=== PATIENT | male | born 1980 | race Caucasian/White ===

== ENCOUNTER 2017-01-28 20:17 | Emergency (ER) | payer MEDICARE, OTHER ==
[2017-01-28 20:23] VITALS: RESP 18
[2017-01-28] MEDS ORDERED: AZITHROMYCIN 500 MG TAB PO STA (20:51)
[2017-01-28] MEDS ORDERED: cefTRIAXone 250 MG VIAL IM STA (20:53)
[2017-01-28 21:52] LABS: Appearance,Urine Clear (Clear); Bilirubin,Urine Negative (Negative); Glucose,Urine (UA) Negative (Negative); Ketones,Urine Negative (Negative); Leukocyte Esterase,Urine Negative (Negative); Nitrite,Urine Negative (Negative); Protein,Urine Negative (Negative); Specific Gravity,Urine 1.015 (1.001-1.035); UA Billing (MACRO vs. MICRO) CHEM; Urobilinogen,Urine <2.0 mg/dL (<2.0)
--- NOTE | 2017-01-28 22:09 | ED ---
General Adult HPI - General Chief complaint: Urogenital Stated complaint: STD TEST Time Seen by Provider: 01/28/17 20:49 Source: patient Mode of arrival: ambulatory Limitations: no limitations - History of Present Illness Initial comments: Patient is a 36-year-old male past history of gonorrhea presenting with STD check. Patient states his girlfriend in the last several months told him to get checked as she was diagnosed with an STD. Patient denies penile ulcer, discharge or pain. - Related Data Home Medications Medication Instructions Recorded Confirmed Diazepam [Valium] 10 mg PO BID PRN 02/08/15 01/28/17 Ezetimibe [Zetia] 10 mg PO DAILY 02/08/15 01/28/17 Fenofibrate 160 mg PO DAILY 02/08/15 01/28/17 Simvastatin [Zocor] 40 mg PO HS 02/08/15 01/28/17 lamoTRIgine [LaMICtal] 200 mg PO DAILY 02/08/15 01/28/17 traZODone HCL [Desyrel] 150 mg PO BID 02/08/15 01/28/17 valACYclovir HCL [Valtrex] 500 mg PO DAILY 02/08/15 01/28/17 Allergies Allergy/AdvReac Type Severity Reaction Status Date / Time No Known Allergies Allergy Verified 01/28/17 20:23 Review of Systems ROS Statement: Those systems with pertinent positive or pertinent negative responses have been documented in the HPI. Constitutional: No fever and no chills. HENT: No congestion, no rhinorrhea and no sore throat. Eyes: No discharge and no redness. Respiratory: No cough and no shortness of breath. Cardiovascular: No chest pain and no palpitations. Gastrointestinal: No nausea, no vomiting, no abdominal pain and no diarrhea. Genitourinary: No dysuria and no hematuria. No discharge. Musculoskeletal: No back pain and no arthralgias. Skin: No pallor and no rash. Neurological: No dizziness and No headaches. ROS Other: All systems not noted in ROS Statement are negative. Past Medical History Past Medical History: Hyperlipidemia, Hypertension Additional Past Medical History / Comment(s): bipolar History of Any Multi-Drug Resistant Organisms: None Reported Past Surgical History: No Surgical Hx Reported Past Psychological History: Bipolar Smoking Status: Never smoker Past Alcohol Use History: None Reported Past Drug Use History: None Reported General Exam - General Exam Comments Initial Comments: Constitutional: Patient appears well-developed and well-nourished. No distress. Head: Normocephalic and atraumatic. Eyes: Conjunctivae and EOM are normal. Right eye exhibits no discharge. Left eye exhibits no discharge. No scleral icterus. Neck: Normal range of motion. Neck supple. Cardiovascular: Normal rate and regular rhythm. No murmur heard. Pulmonary/Chest: Effort normal and breath sounds normal. No respiratory distress. No wheezes. Abdominal: Soft. No distension. There is no tenderness. There is no rebound and no guarding. Genitourinary: Exam completed with RN. Normal circumcised penis without rash or ulcers. No testicle or tenderness. No discharge. Musculoskeletal: Normal range of motion. No edema or tenderness. Neurological: Patient alert and oriented to person, place, and time. Skin: Skin is warm and dry. Not diaphoretic. Nursing notes and vitals reviewed. Limitations: no limitations Course Vital Signs 01/28/17 20:20 Temperature 98.3 F Pulse Rate 64 Respiratory 18 Rate Blood Pressure 145/84 O2 Sat by Pulse 98 Oximetry - Reevaluation(s) Reevaluation #1: 01/28/17 22:14 Patient updated on UA. Patient treated with Rocephin and azithromycin. Will follow-up on gonorrhea/cardiac cultures. Medical Decision Making - Medical Decision Making Patient's a 36-year-old male presenting for STD check after being told by a sexual partner to get checked. Patient accepted STD prophylaxis. Cultures obtained and sent. UA unremarkable. Prior to discharge, patient was resting comfortably in bed. Course of stay improved. Denies pain. Discussed physical exam and diagnostic tests with patient. Questions answered and patient is agreeable to discharge with close follow up with Primary Care Physician. Instructed to return to Emergency Department if symptoms worsen. - Lab Data Lab Results 01/28/17 Range/Units 21:15 Urine Color Yellow Urine Appearance Clear (Clear) Urine pH 6.0 (5.0-8.0) Ur Specific [place] 1.015 (1.001-1.035) Urine Protein Negative (Negative) Urine Glucose (UA) Negative (Negative) Urine Ketones Negative (Negative) Urine Blood Negative (Negative) Urine Nitrate Negative (Negative) Urine Bilirubin Negative (Negative) Urine Urobilinogen <2.0 (<2.0) mg/dL Ur Leukocyte Esterase Negative (Negative) Disposition Clinical Impression: STD exposure Disposition: HOME SELF-CARE Condition: Good Instructions: Safe Sex (ED), Condom Use (ED), Sexually Transmitted Diseases (ED ) Referrals: Broderick Zapata MD [Primary Care Provider] - 1-2 days
[2017-01-28 22:30] VITALS: BP 132/72; PULSE 60; TEMP 98.2
== END 2017-01-28 22:15 | disposition home or self-care (01) ==
LOC: EC 20:17
DX: Z20.2 Contact with and (suspected) exposure to infections with a predominantly sexual mode of transmission (principal); E78.5 Hyperlipidemia, unspecified; F31.9 Bipolar disorder, unspecified; Z79.899 Other long term (current) drug therapy
CPT/HCPCS: 99283; 96372; 81003; 87491; 87591; 87086; J0696

== ENCOUNTER → 2019-03-25 | Outpatient (CLI) | payer MEDICARE, OTHER ==
--- NOTE | 2019-03-25 14:18 | MR ---
EXAMINATION TYPE: MR lumbar spine wo con DATE OF EXAM: 03/25/2019 COMPARISON: NONE HISTORY: Pain TECHNIQUE: T1 and T2 axial and sagittal images of the lumbar spine are submitted. FINDINGS: There is no abnormal signal seen within the visualized spinal cord or paraspinal soft tissu es. At L1-2 there is no degenerative disc disease, disc herniation, or canal stenosis. No foraminal encro achment. At L2-3 there is degenerative disc disease and hypertrophic change with broad-based central disc prot rusion. Facet arthropathy noted. No Canal stenosis. Mild effacement of thecal sac and mild bilateral foraminal encroachment slightly greater on the left. At L3-4 there is degenerative disc disease with diffuse broad-based disc bulging and mild effacement of thecal sac. Mild bilateral foraminal encroachment. At L4-5 there is broad-based central disc bulging slightly greater paracentrally to the left. Neural foramina are patent. No Canal stenosis. Hypertrophic change of the facets. At L5-S1 there is small focal central disc herniation abutting the anterior margin of the thecal sac. There may be slight contact of the exiting right nerve root. Mild effacement of thecal sac. Neural f oramina patent.. No foraminal encroachment. IMPRESSION: 1. Small focal central disc herniation abutting the anterior margin of the thecal sac L5-S1 may conta ct the exiting right nerve root. 2. Multilevel degenerative disc disease with multilevel disc bulging or protrusions as discussed abov e resulting in multilevel mild foraminal encroachment.
== END | disposition home or self-care (01) ==
LOC: RADMRIMAIN 11:15
PROVIDERS: ATTEND Family Medicine
DX: M51.27 Other intervertebral disc displacement, lumbosacral region (principal); M51.36 Other intervertebral disc degeneration, lumbar region
CPT/HCPCS: 72148

== ENCOUNTER → 2022-05-03 | Outpatient (CLI) | payer MEDICARE, OTHER ==
--- NOTE | 2022-05-03 15:08 | P.SLEEP ---
History of Present Illness H&P Date: 05/03/22 This is a 41-year-old male patient was referred to me for evaluation of insomnia. This patient is 41 years old and the patient has had chronic insomnia. He is known to have history of chronic bipolar disorder and he was taking a combination of Lamictal 200 mg and Valium 10 mg by mouth twice a day. He was maintained on his medications for many years and the patient recently was taken off the Valium.. The patient also has chronic problems with insomnia and over the years, the patient was treated with a combination of trazodone 100 mg at bedtime in addition to Ambien 10 mg at bedtime. With this combination, the patient is able to generate sleep. For now, the patient is able to go to bed at around 10 PM11 PM and he gets up between 6 AM8 AM in the morning. He averages around 7 hours of sleep. He has no issues in generating sleep. He wakes up probably once in the middle of the night to urinate and is able to go back to sleep without any major difficulties. Without the medication, his ability to generate and maintain sleep is extremely poor. He is not sure if he snores as the patient lives alone. He has gained weight during this current pandemic and the patient has gained approximately 20-30 pounds. He has chronic issues with pain in his knees due to arthritis and the patient undergone bilateral knee replacement and the patient sleeps with a pillow in between his legs. That makes him more comfortable. No symptoms typical of restless leg syndrome. No grinding of the teeth. Denies waking up choking or gasping for air. No nighttime heartburn or palpitation. No active anxiety. He noted that his chronic anxiety level improved and was under adequate control while he was taken on Valium. The patient has no major hypersomnia and sleepiness. Does not take any naps during the day. His current [place] score is at 4. He is on disability. 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 He sleeps on his side. No dry mouth. No sleep paralysis. No hallucinations. No cataplexy. Drinks caffeinated beverages in moderation. No nightmares. No nocturnal seizures. No agitation. No delirium. Review of Systems Constitutional: Reports daytime sleepiness, Reports fatigue, Reports weight loss Eyes: denies as per HPI, denies blurred vision, denies bulging eye, denies decreased vision, denies diplopia, denies discharge, denies dry eye, denies irritation, denies itching, denies pain, denies photophobia, denies loss of peripheral vision, denies loss of vision, denies tunnel vision/blind spots Ears: deny: decreased hearing, ear discharge, earache, tinnitus Ears, nose, mouth and throat: Reports as per HPI Breasts: absent: as per HPI, gynecomastia Cardiovascular: Reports as per HPI Respiratory: Reports snoring Gastrointestinal: Reports as per HPI Genitourinary: Reports as per HPI Musculoskeletal: Reports as per HPI Musculoskeletal: absent: ankle pain, ankle stiffness, ankle swelling Integumentary: Reports as per HPI Neurological: Reports as per HPI Psychiatric: Reports as per HPI, Reports sleep disturbances Endocrine: Reports fatigue Hematologic/Lymphatic: Reports as per HPI Allergic/Immunologic: Reports as per HPI Past Medical History Past Medical History: Hyperlipidemia, Hypertension Additional Past Medical History / Comment(s): bipolar History of Any Multi-Drug Resistant Organisms: None Reported Past Surgical History: No Surgical Hx Reported Past Psychological History: Bipolar Past Alcohol Use History: None Reported Past Drug Use History: None Reported Medications and Allergies Home Medications Medication Instructions Recorded Confirmed Type Diazepam [Valium] 10 mg PO BID PRN 02/08/15 01/28/17 History Ezetimibe [Zetia] 10 mg PO DAILY 02/08/15 01/28/17 History Fenofibrate 160 mg PO DAILY 02/08/15 01/28/17 History Simvastatin [Zocor] 40 mg PO HS 02/08/15 01/28/17 History lamoTRIgine [LaMICtal] 200 mg PO DAILY 02/08/15 01/28/17 History traZODone HCL [Desyrel] 150 mg PO BID 02/08/15 01/28/17 History valACYclovir HCL [Valtrex] 500 mg PO DAILY 02/08/15 01/28/17 History Allergies Allergy/AdvReac Type Severity Reaction Status Date / Time No Known Allergies Allergy Verified 01/28/17 20:23 Physical Exam BP is 133/79 with a pulse of 100 respirations 16 temperature 99.1 and the saturation 95% on room air weight is 241 and BMI 34.5. Obese, calm comfortable, not in acute distress The patient appeared well nourished and normally developed. Vital signs as documented. Head exam is unremarkable. No scleral icterus or corneal arcus note d. Neck is without jugular venous distension, thyromegaly, or carotid bruits. The patient is edentulous. He carries a Mallampati class III. Carotid upstrokes are brisk bilaterally. Lungs are clear to auscultation and percussion. Cardiac exam reveals the PMI to be normally sized and situated. Rhythm is regular. First and second heart sounds normal. No murmurs, rubs or gallops. Abdominal exam reveals normal bowel sounds, no masses, no organomegaly and no aortic enlargement. Extremities are nonedematous and both femoral and pedal pulses are normal. Examination of the skin revealed no evidence of significant rashes, suspicious appearing nevi or other concerning lesions.Neurologically, the patient is awake and alert and the patient does not have any focal neurological deficit. Cranial nerves are essentially intact. Assessment and Plan Plan: Comorbid insomnia secondary to his chronic psychiatric disorders. The patient has had difficulties in sleep initiation and maintenance on over the years he was treated for his chronic anxiety/bipolar disorder patient is currently on Lamictal. Recently, due to his ongoing issues with insomnia, the patient was given a combination of trazodone 100 mg bedtime in addition to Ambien 10 mg at bedtime. For now is able to generate sleep. No side effects reported to the current medication. No excessive drowsiness during the day. No sleepwalking. No signs of any respiratory insufficiency or any indication to suggest obstructive sleep apnea. Chronic anxiety Chronic bipolar disorder Hypertension Hyperlipidemia Plan In general, the patient is adequately treated with primary care physician. The patient is using a combination of trazodone and Ambien for sleep induction and maintenance and this has helped him with his chronic anxiety/bipolar disorder in addition to his comorbid insomnia and is in combination with Lamictal. No major hypersomnia and sleepiness during the day and the patient's upper scores at 4. No indication for a formal sleep breathing disorder this point in time. As such, I support the current treatment regimen and the patient should be able to continue the same medications for now. At the same time, the patient is maintaining regular sleep schedule, maintaining good sleep hygiene measures and he needs to make an effort to alter risk lifestyle and lose some weight. I do not see need for sleep study at this point in time. No clinical suspicion for obstructive sleep apnea. Continue same treatment. We will see him on an as- needed basis. Sleep Note - Sleep Data Previous Sleep Study: No - Sleep Note Sleep Note: Temperature: Pulse Rate: Respiratory Rate: Blood Pressure: SpO2: Height: Weight: BMI: Neck Circumference:
== END ==
LOC: SLEEP 14:41
PROVIDERS: ATTEND Internal Medicine Critical Care Medicine
DX: F51.05 Insomnia due to other mental disorder (principal); F41.9 Anxiety disorder, unspecified; F31.9 Bipolar disorder, unspecified; I10 Essential (primary) hypertension; E78.5 Hyperlipidemia, unspecified; Z79.899 Other long term (current) drug therapy
CPT/HCPCS: 99202

== ENCOUNTER → 2023-11-22 | Outpatient (CLI) | payer MEDICARE, OTHER | END | disposition home or self-care (01) | LOC: LABWHC1 10:07 | PROVIDERS: ATTEND Surgery Plastic and Reconstructive Surgery | DX: R07.9 Chest pain, unspecified (principal) | CPT/HCPCS: 36415; 93005 ==

== ENCOUNTER → 2023-11-27 | Outpatient (CLI) | payer MEDICARE, OTHER ==
[2023-11-27 15:28] LABS: HCT 45.5 % (39.6-50.0); HGB 14.9 g/dL (13.0-17.0); MCH 29.9 pg (27.0-32.0); MCHC 32.7 g/dL (32.0-37.0); MCV 91.2 FL (80.0-97.0); Mean Platelet Volume 9.2 FL (9.5-12.2); NRBC Per 100 WBC 0 X 10*3/uL (0.00-0.01); Platelet Count 297 X 10*3/uL (140-440); RBC 4.99 X 10*6/uL (4.40-5.60); RDW 14.6 % (11.5-14.5); WBC 6.74 X 10*3/uL (4.50-10.00)
== END | disposition home or self-care (01) ==
LOC: LABPAT 11:44
PROVIDERS: ATTEND Surgery Plastic and Reconstructive Surgery
DX: Z01.812 Encounter for preprocedural laboratory examination (principal)
CPT/HCPCS: 85027

== ENCOUNTER 2023-12-01 09:54 | Day surgery (SDC) | payer MEDICARE, OTHER ==
[2023-11-27 11:08] VITALS: BMI 33.5
--- NOTE | 2023-12-01 07:47 | P.GSHP ---
History of Present Illness H&P Date: 12/01/23 CHIEF COMPLAINT: Ventral hernia HISTORY OF PRESENT ILLNESS: The patient is a 45-year-old male presents with a history of swelling and pain along the abdomen from a hernia of the abdomen. Symptoms have been present for over 6 months. Now he presents for surgical intervention. PAST MEDICAL HISTORY: Please see list. PAST SURGICAL HISTORY: Please see list. MEDICATIONS: Please see list. ALLERGIES: Please see list. SOCIAL HISTORY: No illicit drug use FAMILY HISTORY: No reports of Crohn disease or ulcerative colitis. REVIEW OF ORGAN SYSTEMS: CONSTITUTIONAL: Denies any fever or chills. Denies recent weight loss or weight gain. HEENT: Denies any trouble with vision, hearing or nosebleeds. No difficulty swallowing. LYMPHATIC: The patient denies any lumps and bumps around the neck. ENDOCRINE: Denies any thyroid disorders. Denies any blood sugar glucose intolerance. RESPIRATORY: Denies pneumonia. Denies any troubles with breathing or dyspnea on exertion. CARDIOVASCULAR: Denies any chest pain, palpitations, or recent heart attacks. GASTROINTESTINAL: Denies heart burn, constipation or bright red blood per rectum. GENITOURINARY: Denies any blood in urine or increased urinary frequency. MUSCULOSKELETAL: Denies any back pain, stiffness, joint arthritis. NEUROLOGIC: Denies any numbness or tingling along the distal extremities. No seizure disorders or headaches. PSYCHIATRIC: Denies depression or suidical ideation. HEMATOLOGIC: Denies any abnormal bleeding or bruising. BREASTS: Denies any breast lumps, pain or nipple discharge. PHYSICAL EXAM: GENERAL: Well-developed pleasant male in no acute distress. HEENT: No scleral icterus. Extraocular movements grossly intact. Moist buccal mucosa. NECK: Supple without lymphadenopathy. CHEST: Unlabored respirations. Equal bilateral excursions. CARDIOVASCULAR: Regular rate and rhythm. Distal 2+ pulses. ABDOMEN: Soft, nondistended. Palpable defect of the abdomen. No peritoneal signs. MUSCULOSKELETAL: No clubbing, cyanosis, or edema. SKIN: Well perfused. PSYCH: Alert and oriented to self, place and time ASSESSMENT: 1. Ventral hernia PLAN: 1. Recommend proceeding with robotic ventral hernia repair with mesh. 2. Benefits and risks of surgical intervention was discussed including possibility of open technique. 3. DVT prophylaxis. 4. Antibiotic prophylaxis. 5. Non narcotic pain management including abdominal wall block described 6. Blood sugar glucose described. 7. Weight loss management described. Past Medical History Past Medical History: Hyperlipidemia, Hypertension Additional Past Medical History / Comment(s): bipolar History of Any Multi-Drug Resistant Organisms: None Reported Past Surgical History: Hernia Repair, Joint Replacement Additional Past Surgical History / Comment(s): BILAT TKA, INGUINAL HERNIA, Past Anesthesia/Blood Transfusion Reactions: No Reported Reaction Smoking Status: Never smoker - Past Family History Mother Family Medical History: No Reported History Medications and Allergies Home Medications Medication Instructions Recorded Confirmed Type Ezetimibe [Zetia] 10 mg PO HS 02/08/15 11/27/23 History Fenofibrate 160 mg PO HS 02/08/15 11/27/23 History Simvastatin [Zocor] 40 mg PO HS 02/08/15 11/27/23 History lamoTRIgine [LaMICtal] 200 mg PO HS 02/08/15 11/27/23 History HYDROcodone/APAP 7.5-325MG [[place] 1 tab PO Q6HR PRN 11/27/23 11/27/23 History 7.5-325] Losartan [Cozaar] 50 mg PO HS 11/27/23 11/27/23 History Zolpidem [Ambien] 10 mg PO HS PRN 11/27/23 11/27/23 History traZODone HCL [Desyrel] 200 mg PO HS 11/27/23 11/27/23 History valACYclovir HCL [Valacyclovir] 1,000 mg PO HS 11/27/23 11/27/23 History Allergies Allergy/AdvReac Type Severity Reaction Status Date / Time No Known Allergies Allergy Verified 11/27/23 10:51
[~2023-12-01 09:54] MED LIST: ACETAMINOPHEN TAB 500 MG TAB PO PRN; HEPARIN SODIUM,PORCINE 5,000 UNIT/ML 1 ML VIAL SQ PRN; MELOXICAM 7.5 MG TAB PO PRN; MIDAZOLAM 2 MG/2 ML VIAL IV PRN; ONDANSETRON 4 MG/2 ML VIAL IVP PRN
[2023-12-01] MEDS: LACTATED RINGERS 1,000 ML IV SCH ×2 (10:48→11:50)
[2023-12-01] MEDS ORDERED: TAMSULOSIN 0.4 MG CAP.ER.24H PO STA (11:21)
--- NOTE | 2023-12-01 11:31 | P.ANPRN ---
Procedure Note - Anesthesia - Nerve Block Performed Bilateral Erector Spinae Single Time Out Performed: Yes Date of Procedure: 12/01/23 Procedure Start Time: 11:04 Procedure Stop Time: 11:11 Location of Patient: PreOp Indication: Acute Post-Operative Pain, Analgesia, Requested by Surgeon Sedation Type: Sedate with meaningful contact maintained Preparation: Sterile Prep Position: Sitting Catheter: None Needle Types: Pajunk Needle Gauge: 21 Ultrasound used to visualize needle placement: Yes Ultrasound used to observe medication spread: Yes Injectate: 0.5% Ropivacaine (see comment for volume) (Ropiv 15ml+NS 10ml---- On each side) Blood Aspirated: No Pain Paresthesia on Injection Noted: No Resistance on Injection: Normal Image Stored and Saved: Yes
[2023-12-01] MEDS ORDERED: PHENYLEPHRINE 10 MG/ML VIAL ONE (11:47)
[2023-12-01] MEDS ORDERED: SODIUM CHLORIDE 0.9% (PF) 10 ML VIAL ONE (11:47)
[2023-12-01] MEDS ORDERED: PROPOFOL 10 MG/ML 20 ML VIAL IV ONE (11:47)
[2023-12-01] MEDS ORDERED: SUCCINYLCHOLINE CHLORIDE 200 MG/10 ML VIAL IV ONE (11:47)
[2023-12-01] MEDS ORDERED: LIDOCAINE 4% LTA KIT (4 ML) TOPICAL ONE (11:47)
[2023-12-01] MEDS ORDERED: ePHEDrine 50 MG/ML 1 ML VIAL ONE (11:47)
[2023-12-01] MEDS ORDERED: fentaNYL (PF) 50 MCG/ML 2 ML AMP ONE (11:47)
[2023-12-01] MEDS ORDERED: ROPIVACAINE 5 MG/ML 30 ML VIAL ONE (11:47)
[2023-12-01] MEDS ORDERED: NEOSTIGMINE 1 MG/ML 10 ML VIAL ONE (11:47)
[2023-12-01] MEDS ORDERED: MIDAZOLAM 2 MG/2 ML VIAL ONE (11:47)
[2023-12-01] MEDS ORDERED: ROCURONIUM 10 MG/ML (5 ML VIAL) IV ONE (11:47)
[2023-12-01] MEDS ORDERED: GLYCOPYRROLATE 0.2 MG/ML 2 ML VIAL ONE (11:47)
[2023-12-01] MEDS ORDERED: LIDOCAINE 1% INJ 10MG/ML (20 ML MDV) ONE (11:47)
[2023-12-01] MEDS ORDERED: LIDOCAINE 0.5%-EPI 1:200,000 50 ML VIAL SQ ONE (11:52)
[2023-12-01 12:06] LABS: ALT 29 U/L (4-49); AST 27 U/L (17-59); African American GFR (CKD) >90 (>60 ml/min/1.73 sqM); Albumin 3.8 g/dL (3.5-5.0); Alkaline Phosphatase 41 U/L (38-126); Anion Gap 6 mmol/L; Blood Urea Nitrogen 14 mg/dL (9-20); Calcium 8.9 mg/dL (8.4-10.2); Carbon Dioxide 28 mmol/L (22-30); Chloride 104 mmol/L (98-107); Glucose 98 mg/dL (74-99); Non-African American GFR(CKD) >90 (>60 ml/min/1.73 sqM); Potassium 4.3 mmol/L (3.5-5.1); Sodium 138 mmol/L (137-145); Total Bilirubin 0.5 mg/dL (0.2-1.3); Total Protein 5.8 g/dL (6.3-8.2)
[2023-12-01] MEDS ORDERED: LACTATED RINGERS 1,000 ML IV ONE (12:41)
--- NOTE | 2023-12-01 13:19 | P.OP ---
Date of Procedure: 12/01/23 Description of Procedure: SURGEON: MAYA QUAN MD PREOPERATIVE DIAGNOSES: 1. Initial umbilical ventral hernia with incarceration, 2 cm 2. Obesity due to excess calories, BMI 32.5 3. Hypertensive heart disease 4. Hyperlipidemia 5. Bipolar disorder POSTOPERATIVE DIAGNOSES: 1. Initial umbilical ventral hernia with incarceration, 2 cm 2. Obesity due to excess calories, BMI 32.5 3. Hypertensive heart disease 4. Hyperlipidemia 5. Bipolar disorder OPERATION: 1. Robotic-assisted da Javier Xi laparoscopic repair of initial incarcerated umbilical hernia without mesh Anesthesia: GETA, regional, local Estimated Blood Loss (ml): 5 Pathology: None COMPLICATIONS: None. Operative Findings: 1. Umbilical hernia defect 1.5 cm 2. Fascia repaired using #1 V-lock suture INDICATIONS: The patient is a 43-year-old male who presents with a personal history of abdominal wall hernia. Surgical intervention with laparoscopic versus robotic and open techniques were reviewed. Placement of mesh was also reviewed. Benefits and risks were thoroughly described. Informed consent was obt ained. DESCRIPTION OF PROCEDURE: The patient was brought into the operating room and laid in supine position. After general induction, the abdomen had been prepped and draped in standard sterile fashion. Ioban draping was also placed. Prior to incision, a timeout protocol was confirmed with surgical team regarding the patient's name including procedures to be performed. The robot was primed prior to the procedure. A field block using local anesthetic was placed along hernia site including the proposed port sites. Initial incision was made with an #11 blade along the left upper quadrant. A 0 degree 5 mm laparoscopic trocar entry was performed and insufflated. Three 8 mm ports were placed along the left lateral abdominal wall under direct localization after exchanging the 5-mm for an 8 mm port. Placements of the ports were 15 cm from the target anatomy and 10 cm apart. An accessory 12 mm port was placed at the right upper quadrant for exchange of mesh including sutures. The Waizyi Xi robot was previously primed, prepped and draped then docked from the right side of the patient onto the left side of the patient. I then sat at the robot Xiaomii Xi console where working arms of the robot including Bovie cautery connected to robotic scissors, needle xm1 tank driver, and graspers placed by the assistant professor of nursing. The defect was reduced with preperitoneal fat. Umbilical hernia fascia defect 1.5 cm was found. The incarcerated contents were reduced as the peritoneal fat was cleaned from the abdominal wall. Next, hemostasis was checked with cautery. The hernia defects were oversewn using #1 nonabsorbable V-lock suture with fascial imbrication x 3. Due to the small fascial defect, mesh was avoided. A final endoscopic imaging was obtained. All instruments and pneumoperitoneum were evacuated from the abdominal cavity. The da Javier Xi robot was undocked from the patient. I re-scrubbed into the case for closure of incisions. The fascia of the 12-mm port was probed and less than 8-mm in size. The incisions were reapproximated using 4-0 Monocryl in an interrupted subcuticular fashion. Liquid glue was applied to the skin after cleansing the skin with normal saline and dilute hydrogen peroxide. An abdominal binder was placed. An umbilical dressing was placed prior. At the end of the procedure, needle, sponge, and instrument count had been verified correct by surgical aide. The patient was taken to Plan - Discharge Summary Discharge Rx Participant: Yes New Discharge Prescriptions: Continue Ezetimibe [Zetia] 10 mg PO HS lamoTRIgine [LaMICtal] 200 mg PO HS Simvastatin [Zocor] 40 mg PO HS Fenofibrate 160 mg PO HS valACYclovir HCL [Valacyclovir] 1,000 mg PO HS HYDROcodone/APAP 7.5-325MG [[place] 7.5-325] 1 tab PO Q6HR PRN PRN Reason: Pain Losartan [Cozaar] 50 mg PO HS Zolpidem [Ambien] 10 mg PO HS PRN PRN Reason: Insomnia traZODone HCL [Desyrel] 200 mg PO HS Discharge Medication List Ezetimibe [Zetia] 10 mg PO HS 02/08/15 [History] Fenofibrate 160 mg PO HS 02/08/15 [History] Simvastatin [Zocor] 40 mg PO HS 02/08/15 [History] lamoTRIgine [LaMICtal] 200 mg PO HS 02/08/15 [History] HYDROcodone/APAP 7.5-325MG [[place] 7.5-325] 1 tab PO Q6HR PRN 11/27/23 [History] Losartan [Cozaar] 50 mg PO HS 11/27/23 [History] Zolpidem [Ambien] 10 mg PO HS PRN 11/27/23 [History] traZODone HCL [Desyrel] 200 mg PO HS 11/27/23 [History] valACYclovir HCL [Valacyclovir] 1,000 mg PO HS 11/27/23 [History] Follow up Appointment(s)/Referral(s): Maya Quan MD [STAFF PHYSICIAN] - 12/26/23 2:00 pm Patient Instructions/Handouts: Laparoscopic Herniorrhaphy (DC), Abdominal Bi nder (GEN), Umbilical Hernia Repair (DC) Activity/Diet/Wound Care/Special Instructions: No lifting for 4 pounds in 4 weeks, 01/01/24 Using antibacterial soap. May shower. No bathtub soaks for 2 weeks, 12/15/23 Wear abdominal binder daily for comfort except for showering. Use ice along incisions for today to prevent swelling. Use Tylenol, simethicone and ibuprofen or Aleve scheduled for the next 24-48 hours for best pain relief. Discharge Disposition: HOME SELF-CARE
[2023-12-01] MEDS: HYDROmorphone 0.5 MG/0.5 ML SYRINGE IVP PRN ×2 (13:23→13:33)
[2023-12-01 13:29] VITALS: TEMP 97
[2023-12-01 15:29] VITALS: BP 128/84; PULSE 78; RESP 16
== END 2023-12-01 15:25 | disposition home or self-care (01) ==
LOC: OR 09:54
PROVIDERS: ATTEND Surgery Plastic and Reconstructive Surgery
DX: K42.0 Umbilical hernia with obstruction, without gangrene (principal); E66.01 Morbid (severe) obesity due to excess calories; Z68.32 Body mass index [BMI] 32.0-32.9, adult; I11.9 Hypertensive heart disease without heart failure; E78.5 Hyperlipidemia, unspecified; F31.9 Bipolar disorder, unspecified; Z96.653 Presence of artificial knee joint, bilateral; Z98.890 Other specified postprocedural states; Z79.624 Long term (current) use of inhibitors of nucleotide synthesis; Z79.899 Other long term (current) drug therapy
CPT/HCPCS: 49592; S2900; 64999; 80053

== ENCOUNTER 2024-08-24 11:47 | Emergency (ER) | payer OTHER ==
[2024-08-24 12:04] VITALS: TEMP 98.2
--- NOTE | 2024-08-24 12:25 | ED ---
General Adult HPI - General Chief complaint: Abdominal Pain Stated complaint: Abdominal Pain Time Seen by Provider: 08/24/24 12:00 Source: patient, RN notes reviewed, old records reviewed Mode of arrival: ambulatory - History of Present Illness Initial comments: This is 43-year-old male who presents to the emergency department complaining of having abdominal pain particularly at night. Patient states it gets harder at night and it has been waking him up quite a bit. Patient states she has an appointment on September 03 but the pain was worse last night so he decided to come in. Patient denies any fever chills. Patient is chest pain difficulty breathing. Patient denies any nausea vomiting patient [place] any diarrhea. Patient also complains that he feels like there is a small lump in the front is if there is a hernia. Patient also complains of some CVA area tenderness in the back he states it feels like there is a small mass there. - Related Data Home Medications Medication Instructions Recorded Confirmed Ezetimibe [Zetia] 10 mg PO HS 02/08/15 12/01/23 Fenofibrate 160 mg PO HS 02/08/15 12/01/23 Simvastatin [Zocor] 40 mg PO HS 02/08/15 12/01/23 lamoTRIgine [LaMICtal] 200 mg PO HS 02/08/15 12/01/23 HYDROcodone/APAP 7.5-325MG [[place] 1 tab PO Q6HR PRN 11/27/23 12/01/23 7.5-325] Losartan [Cozaar] 50 mg PO HS 11/27/23 12/01/23 Zolpidem [Ambien] 10 mg PO HS PRN 11/27/23 12/01/23 traZODone HCL [Desyrel] 200 mg PO HS 11/27/23 12/01/23 valACYclovir HCL [Valacyclovir] 1,000 mg PO HS 11/27/23 12/01/23 Previous Rx's Medication Instructions Recorded Acetaminophen Tab [Tylenol Tab] 1,000 mg PO Q6HR PRN #30 tablet 12/01/23 Cyclobenzaprine [Flexeril] 10 mg PO TID #30 tab 12/01/23 Ibuprofen [Motrin] 600 mg PO Q8HR PRN #30 tab 12/01/23 Allergies Allergy/AdvReac Type Severity Reaction Status Date / Time No Known Allergies Allergy Verified 08/24/24 12:04 Review of Systems ROS Statement: Those systems with pertinent positive or pertinent negative responses have been documented in the HPI. ROS Other: All systems not noted in ROS Statement are negative. Past Medical History Past Medical History: Hyperlipidemia, Hypertension Additional Past Medical History / Comment(s): bipolar History of Any Multi-Drug Resistant Organisms: None Reported Past Surgical History: Hernia Repair, Joint Replacement Additional Past Surgical History / Comment(s): BILAT TKA, INGUINAL HERNIA, Past Anesthesia/Blood Transfusion Reactions: No Reported Reaction Past Psychological History: Bipolar Smoking Status: Never smoker Past Alcohol Use History: None Reported Past Drug Use History: None Reported - Past Family History Mother Family Medical History: No Reported History General Exam - General Exam Comments Initial Comments: GENERAL: Patient is well-developed and well-nourished. Patient is nontoxic and well- hydrated and is in mild distress. ENT: Neck is soft and supple. No significant lymphadenopathy is noted. Oropharynx is clear. Moist mucous membranes. Neck has full range of motion without eliciting any pain. EYES: The sclera were anicteric and conjunctiva were pink and moist. Extraocular movements were intact and pupils were equal round and reactive to light. Eyelids were unremarkable. PULMONARY: Unlabored respirations. Good breath sounds bilaterally. No audible rales rhonchi or wheezing was noted. CARDIOVASCULAR: There is a regular rate and rhythm without any murmurs gallops or rubs. ABDOMEN: Soft and nontender with normal bowel sounds. Patient has an area that bulges out a little bit in the left lower anterior aspect of his abdomen consistent with a possible ventral hernia. SKIN: Skin is clear with no lesions or rashes and otherwise unremarkable. NEUROLOGIC: Patient is alert and oriented x3. Cranial nerves II through XII are grossly intact. Motor and sensory are also intact. Normal speech, volume and content. Symmetrical smile. MUSCULOSKELETAL: Normal extremities with adequate strength and full range of motion. No lower extremity swelling or edema. No calf tenderness. Patient has a small masslike area in his left CVA region and it is mildly tender to touch LYMPHATICS: No significant lymphadenopathy is noted PSYCHIATRIC: Normal psychiatric evaluation. Course Vital Signs 08/24/24 08/24/24 08/24/24 11:59 12:04 13:59 Temperature 98.2 F Pulse Rate 77 78 78 Respiratory 18 18 16 Rate Blood Pressure 153/99 147/94 124/86 O2 Sat by Pulse 95 97 96 Oximetry 08/24/24 14:00 Temperature Pulse Rate 77 Respiratory 17 Rate Blood Pressure 124/78 O2 Sat by Pulse 97 Oximetry Medical Decision Making - Medical Decision Making Was pt. sent in by a medical professional or institution ([facility] Hein, MANAGER SAP, urgent care, hospital, or long-term...) When possible be specific @ -No Did you speak to anyone other than the patient for history (EMS, parent, family, police, friend...)? What history was obtained from this source @ -No Did you review nursing and triage notes (agree or disagree)? Why? @ -I reviewed and agree with nursing and triage notes Were old charts reviewed (outside hosp., previous admission, EMS record, old EKG, old radiological studies, urgent care reports/EKG's, long-term records)? Report findings @ -No old charts were reviewed Differential Diagnosis? @ -Differential Abdominal Pain Men: Appendicitis, cholecystitis, diverticulosis, ischemic bowel, pancreatitis, hepatitis, UTI, gastroenteritis, AAA, incarcerated hernia, bowel obstruction, constipation, inflammatory bowel, hepatitis, peptic ulcer disease, splenic infarction, perforated viscus, testicular torsion, this is not meant to be an all-inclusive list EKG interpreted by me (3pts min.). @ -As above X-rays interpreted by me (1pt min.). @ -None CT interpreted by me (1pt min.). @ -CT of the abdomen does show a small diastases anterior abdominal wall U/S interpreted by me (1pt. min.). @ -None done What testing was considered but not performed or refused? (CT, X-rays, U/S, labs)? Why? @ -None What meds were considered but not given or refused? Why? @ -None Did you discuss the management of the patient with other professionals (professionals i.e. [facility] Hein, MANAGER SAP, lab, RT, psych nurse, professor of social work, floorworker, teacher, seal delivery vehicle officer, case filler)? Give summary @ -No Was smoking cessation discussed for >3mins.? @ -No Was critical care preformed (if so, how long)? @ -No Were there social determinants of health that impacted care today? How? (Homelessness, low income, unemployed, alcoholism, drug addiction, transportation, low edu. Level, literacy, decrease access to med. care, custodial, rehab)? @ -No Was there de-escalation of care discussed even if they declined (Discuss DNR or withdrawal of care, Hospice)? DNR status @ -No What co-morbidities impacted this encounter? (DM, HTN, Smoking, COPD, CAD, Can cer, CVA, ARF, Chemo, Hep., AIDS, mental health diagnosis, sleep apnea, morbid obesity)? @ -None Was patient admitted / discharged? Hospital course, mention meds given and route, prescriptions, significant lab abnormalities, going to OR and other pertinent info. @ -Patient CT showed no acute normality. Patient's lab work showed no acute normality. Patient will follow-up with the surgeon Undiagnosed new problem with uncertain prognosis? @ -No Drug Therapy requiring intensive monitoring for toxicity (Heparin, Nitro, Insulin, Cardizem)? @ -No Were any procedures done? @ -No Diagnosis/symptom? @ -Diastases of the abdominal wall Acute, or Chronic, or Acute on Chronic? @ -Acute Uncomplicated (without systemic symptoms) or Complicated (systemic symptoms)? @ -Complicated Side effects of treatment? @ -No Exacerbation, Progression, or Severe Exacerbation? @ -No Poses a threat to life or bodily function? How? (Chest pain, [place], [place], pneumonia, PE, COPD, DKA, ARF, appy, cholecystitis, CVA, Diverticulitis, Homicidal, Suicidal, threat to staff... and all critical care pts) @ -No - Lab Data Result diagrams: 08/24/24 12:22 08/24/24 12:22 Lab Results 08/24/24 08/24/24 Range/Units 12:22 12:22 WBC 5.7 (3.8-10.6) k/uL RBC 5.25 (4.30-5.90) m/uL Hgb 15.3 (13.0-17.5) gm/dL Hct 47.2 (39.0-53.0) % MCV 89.9 (80.0-100.0) fL MCH 29.1 (25.0-35.0) pg MCHC 32.4 (31.0-37.0) g/dL RDW 14.3 (11.5-15.5) % Plt Count 300 (150-450) k/uL MPV 6.2 Neutrophils % 64 % Lymphocytes % 24 % Monocytes % 5 % Eosinophils % 4 % Basophils % 1 % Neutrophils # 3.7 (1.3-7.7) k/uL Lymphocytes # 1.4 (1.0-4.8) k/uL Monocytes # 0.3 (0-1.0) k/uL Eosinophils # 0.2 (0-0.7) k/uL Basophils # 0.0 (0-0.2) k/uL Sodium 136 L (137-145) mmol/L Potassium 4.9 (3.5-5.1) mmol/L Chloride 109 H (98-107) mmol/L Carbon Dioxide 24 (22-30) mmol/L Anion Gap 3 mmol/L BUN 18 (9-20) mg/dL Creatinine 0.80 (0.66-1.25) mg/dL Est GFR (CKD-EPI)AfAm >90 (>60 ml/min/1.73 sqM) Est GFR (CKD-EPI)NonAf >90 (>60 ml/min/1.73 sqM) Glucose 103 H (74-99) mg/dL Calcium 9.6 (8.4-10.2) mg/dL Total Bilirubin 1.1 (0.2-1.3) mg/dL AST 55 (17-59) U/L ALT 41 (4-49) U/L Alkaline Phosphatase 36 L (38-126) U/L Total Protein 6.2 L (6.3-8.2) g/dL Albumin 4.2 (3.5-5.0) g/dL Amylase 43 (30-110) U/L Lipase 118 (23-300) U/L Disposition Clinical Impression: Abdominal wall hernia Disposition: HOME SELF-CARE Condition: Good Instructions (If sedation given, give patient instructions): Ventral Hernia (ED) Is patient prescribed a controlled substance at d/c from ED?: No Referrals: Broderick Zapata MD [Primary Care Provider] - 1-2 days Time of Disposition: 14:54
[2024-08-24 12:46] LABS: Basophils % (A) 1 %; Eosinophils # (A) 0.2 k/uL (0-0.7); Eosinophils % (A) 4 %; HCT 47.2 % (39.0-53.0); HGB 15.3 gm/dL (13.0-17.5); Lymphocytes # (A) 1.4 k/uL (1.0-4.8); Lymphocytes % (A) 24 %; MCH 29.1 pg (25.0-35.0); MCHC 32.4 g/dL (31.0-37.0); MCV 89.9 fL (80.0-100.0); Mean Platelet Volume 6.2; Monocytes # (A) 0.3 k/uL (0-1.0); Monocytes % (A) 5 %; Neutrophils # (A) 3.7 k/uL (1.3-7.7); Neutrophils % (A) 64 %; Platelet Count 300 k/uL (150-450); RBC 5.25 m/uL (4.30-5.90); RDW 14.3 % (11.5-15.5); WBC 5.7 k/uL (3.8-10.6)
[2024-08-24 12:58] LABS: ALT 41 U/L (4-49); African American GFR (CKD) >90 (>60 ml/min/1.73 sqM); Amylase 43 U/L (30-110); Anion Gap 3 mmol/L; Blood Urea Nitrogen 18 mg/dL (9-20); Calcium 9.6 mg/dL (8.4-10.2); Carbon Dioxide 24 mmol/L (22-30); Chloride 109 mmol/L (98-107); Glucose 103 mg/dL (74-99); Lipase 118 U/L (23-300); Non-African American GFR(CKD) >90 (>60 ml/min/1.73 sqM); Sodium 136 mmol/L (137-145)
[2024-08-24 13:17] LABS: AST 55 U/L (17-59); Albumin 4.2 g/dL (3.5-5.0); Alkaline Phosphatase 36 U/L (38-126); Potassium 4.9 mmol/L (3.5-5.1); Total Bilirubin 1.1 mg/dL (0.2-1.3); Total Protein 6.2 g/dL (6.3-8.2)
--- NOTE | 2024-08-24 14:21 | CT ---
EXAMINATION TYPE: CT abdomen pelvis w con CT DLP: 1512.4 mGycm, Automated exposure control for dose reduction was used. DATE OF EXAM: 08/24/2024 1:43 PM COMPARISON: None CLINICAL INDICATION: Male, 43 years old with history of abdominal pain; Abdominal pain TECHNIQUE: Axial CT abdomen pelvis w con;Sagittal and coronal reformats were created on a separate w orkstation. Contrast used:100 ml mL of Isovue 370 with IV Contrast, (none if empty) Oral contrast used: without Oral Contrast (none if empty) FINDINGS: LOWER CHEST: Unremarkable ABDOMEN LIVER: Few scattered hypodense probable cysts. GALLBLADDER AND BILE DUCTS: Unremarkable. PANCREAS: Unremarkable. SPLEEN: Unremarkable. ADRENAL GLANDS: Unremarkable. KIDNEYS AND URETERS: No evidence of hydronephrosis or renal calculus. The ureters are unremarkable. PELVIS BLADDER: Unremarkable REPRODUCTIVE: Unremarkable. ABDOMEN & PELVIS STOMACH AND BOWEL: No evidence of bowel obstruction. PERITONEUM/RETROPERITONEUM: No evidence of pneumoperitoneum or free fluid. VASCULATURE: No evidence of aortic aneurysm. MUSCULOSKELETAL: No acute osseous abnormalities LYMPH NODES: No gross evidence for lymphadenopathy. SOFT TISSUE/ABDOMINAL WALL: Diastases of the anterior abdominal musculature with fat-containing herni as bilaterally. This measures up to 3.4 cm wide in the caudocranial dimension. IMPRESSION: 1. No acute abdominal process. 2. Diastases of the anterior abdominal wall with fat-containing ventral wall hernias near the diasta ses. Correlate if this is where the patient's pain is with palpation. No other acute abdominal proces s visualized. [facility], , 08/24/2024 2:19 PM
[2024-08-24 14:22] VITALS: BP 124/78; PULSE 77; RESP 17
== END 2024-08-24 15:02 | disposition home or self-care (01) ==
LOC: EC 11:47
DX: K43.9 Ventral hernia without obstruction or gangrene (principal)
CPT/HCPCS: 36415; 74177; 80053; 82150; 83690; 85025; 99284

== ENCOUNTER 2024-09-27 11:13 | Day surgery (SDC) | payer MEDICARE, OTHER ==
[2024-09-24 12:07] VITALS: BMI 34.3
--- NOTE | 2024-09-27 06:32 | P.GSHP ---
History of Present Illness H&P Date: 09/27/24 CHIEF COMPLAINT: Ventral hernia HISTORY OF PRESENT ILLNESS: The patient is a 43-year-old male who presents with a history of swelling and pain along the abdomen from a hernia of the abdomen. He had prior repair earlier in the year and presents with occurrence after weight gain of over 20 pounds and moderate lifting in the gym. Symptoms have been present for over 2 months. Now he presents for surgical intervention. PAST MEDICAL HISTORY: Please see list. PAST SURGICAL HISTORY: Please see list. MEDICATIONS: Please see list. ALLERGIES: Please see list. SOCIAL HISTORY: No illicit drug use FAMILY HISTORY: No reports of Crohn disease or ulcerative colitis. REVIEW OF ORGAN SYSTEMS: CONSTITUTIONAL: Denies any fever or chills. Has recent weight gain. HEENT: Denies any trouble with vision, hearing or nosebleeds. No difficulty swallowing. LYMPHATIC: The patient denies any lumps and bumps around the neck. ENDOCRINE: Denies any thyroid disorders. Denies any blood sugar glucose intolerance. RESPIRATORY: Denies pneumonia. Denies any troubles with breathing or dyspnea on exertion. CARDIOVASCULAR: Denies any chest pain, palpitations, or recent heart attacks. GASTROINTESTINAL: Denies heart burn, constipation or bright red blood per rectum. GENITOURINARY: Denies any blood in urine or increased urinary frequency. MUSCULOSKELETAL: Denies any back pain, stiffness, joint arthritis. NEUROLOGIC: Denies any numbness or tingling along the distal extremities. No seizure disorders or headaches. PSYCHIATRIC: Denies suidical ideation. HEMATOLOGIC: Denies any abnormal bleeding or bruising. BREASTS: Denies any breast lumps, pain or nipple discharge. PHYSICAL EXAM: GENERAL: Well-developed pleasant male in no acute distress. HEENT: No scleral icterus. Extraocular movements grossly intact. Moist buccal mucosa. NECK: Supple without lymphadenopathy. CHEST: Unlabored respirations. Equal bilateral excursions. CARDIOVASCULAR: Regular rate and rhythm. Distal 2+ pulses. ABDOMEN: Soft, nondistended. Palpable defect of the abdomen. No peritoneal signs. MUSCULOSKELETAL: No clubbing, cyanosis, or edema. SKIN: Well perfused. PSYCH: Alert and oriented to self, place and time ASSESSMENT: 1. Ventral hernia, recurrent PLAN: 1. Recommend proceeding with robotic ventral hernia repair with mesh. 2. Benefits and risks of surgical intervention was discussed including possibility of open technique. 3. DVT prophylaxis. 4. Antibiotic prophylaxis. 5. Non narcotic pain management including abdominal wall block described 6. Blood sugar glucose described. 7. Weight loss management described. 8. Protein intake 90 to 100 g daily described for optimal recovery and weight loss management 9. CBC CMP EKG on day of procedure Past Medical History Past Medical History: Hyperlipidemia, Hypertension Additional Past Medical History / Comment(s): bipolar History of Any Multi-Drug Resistant Organisms: None Reported Past Surgical History: Hernia Repair, Joint Replacement Additional Past Surgical History / Comment(s): BILATERAL TOTAL KNEE REPLACEMENTS, INGUINAL HERNIA REPAIR. Past Anesthesia/Blood Transfusion Reactions: No Reported Reaction Smoking Status: Never smoker - Past Family History Mother Family Medical History: No Reported History Medications and Allergies Home Medications Medication Instructions Recorded Confirmed Type Ezetimibe [Zetia] 10 mg PO HS 02/08/15 09/24/24 History Fenofibrate 160 mg PO HS 02/08/15 09/24/24 History Simvastatin [Zocor] 40 mg PO HS 02/08/15 09/24/24 History lamoTRIgine [LaMICtal] 200 mg PO HS 02/08/15 09/24/24 History HYDROcodone/APAP 7.5-325MG [[place] 1 tab PO Q6HR PRN 11/27/23 09/24/24 History 7.5-325] Losartan [Cozaar] 50 mg PO HS 11/27/23 09/24/24 History Zolpidem [Ambien] 10 mg PO HS PRN 11/27/23 09/24/24 History traZODone HCL [Desyrel] 100 mg PO HS 11/27/23 09/24/24 History valACYclovir HCL [Valacyclovir] 1,000 mg PO HS 11/27/23 09/24/24 History Allergies Allergy/AdvReac Type Severity Reaction Status Date / Time No Known Allergies Allergy Verified 09/24/24 11:53
[~2024-09-27 11:13] MED LIST changes: -ACETAMINOPHEN TAB 500 MG TAB PO PRN; -HEPARIN SODIUM,PORCINE 5,000 UNIT/ML 1 ML VIAL SQ PRN; -MELOXICAM 7.5 MG TAB PO PRN; -ONDANSETRON 4 MG/2 ML VIAL IVP PRN
[2024-09-27] MEDS: MELOXICAM 7.5 MG TAB PO PRN (11:56)
[2024-09-27] MEDS: ACETAMINOPHEN TAB 500 MG TAB PO PRN (11:56)
[2024-09-27] MEDS: LACTATED RINGERS 1,000 ML IV SCH (11:58)
[2024-09-27] MEDS: IV FLUID CONTINUATION 1,000 ML IV ONE (12:31)
[2024-09-27] MEDS: DEXAMETHASONE SOD PHOSPHATE 4 MG/ML 1 ML VIAL IVP STA (12:32)
[2024-09-27] MEDS: ONDANSETRON 4 MG/2 ML VIAL IVP PRN (12:32)
[2024-09-27 12:34] LABS: Basophils % (A) 1 %; Eosinophils # (A) 0.2 k/uL (0-0.7); Eosinophils % (A) 3 %; HCT 45.2 % (39.0-53.0); Lymphocytes # (A) 1.4 k/uL (1.0-4.8); Lymphocytes % (A) 22 %; MCH 29.7 pg (25.0-35.0); MCHC 33.3 g/dL (31.0-37.0); MCV 89.4 fL (80.0-100.0); Mean Platelet Volume 6.9; Monocytes # (A) 0.3 k/uL (0-1.0); Monocytes % (A) 4 %; Neutrophils # (A) 4.1 k/uL (1.3-7.7); Neutrophils % (A) 68 %; Platelet Count 302 k/uL (150-450); RBC 5.06 m/uL (4.30-5.90); RDW 14.4 % (11.5-15.5)
[2024-09-27 12:41] LABS: ALT 30 U/L (4-49); African American GFR (CKD) >90 (>60 ml/min/1.73 sqM); Anion Gap 5 mmol/L; Blood Urea Nitrogen 15 mg/dL (9-20); Calcium 9.1 mg/dL (8.4-10.2); Carbon Dioxide 24 mmol/L (22-30); Chloride 109 mmol/L (98-107); Glucose 96 mg/dL (74-99); Non-African American GFR(CKD) >90 (>60 ml/min/1.73 sqM); Sodium 138 mmol/L (137-145); Total Bilirubin 0.7 mg/dL (0.2-1.3); Total Protein 6.2 g/dL (6.3-8.2)
[2024-09-27] MEDS: MIDAZOLAM 2 MG/2 ML VIAL IVP ONE (12:45)
[2024-09-27] MEDS: HEPARIN SODIUM,PORCINE 5,000 UNIT/ML 1 ML VIAL SQ PRN (13:03)
[2024-09-27 13:29] LABS: AST 38 U/L (17-59); Alkaline Phosphatase 25 U/L (38-126); Potassium 4.2 mmol/L (3.5-5.1)
[2024-09-27] MEDS ORDERED: NEOSTIGMINE 1 MG/ML 10 ML VIAL ONE (15:40)
[2024-09-27] MEDS ORDERED: ROPIVACAINE 5 MG/ML 30 ML VIAL ONE (15:40)
[2024-09-27] MEDS ORDERED: LIDOCAINE 1% INJ 10MG/ML (20 ML MDV) ONE (15:40)
[2024-09-27] MEDS ORDERED: PROPOFOL 10 MG/ML 20 ML VIAL IV ONE (15:40)
[2024-09-27] MEDS ORDERED: MIDAZOLAM 2 MG/2 ML VIAL ONE (15:40)
[2024-09-27] MEDS ORDERED: SODIUM CHLORIDE 0.9% (PF) 10 ML VIAL ONE (15:40)
[2024-09-27] MEDS ORDERED: SUCCINYLCHOLINE CHLORIDE 200 MG/10 ML VIAL IV ONE (15:40)
[2024-09-27] MEDS ORDERED: GLYCOPYRROLATE 0.2 MG/ML 2 ML VIAL ONE (15:40)
[2024-09-27] MEDS ORDERED: ROCURONIUM 10 MG/ML (5 ML VIAL) IV ONE (15:40)
[2024-09-27] MEDS ORDERED: fentaNYL (PF) 50 MCG/ML 2 ML AMP ONE (15:40)
[2024-09-27] MEDS: LIDOCAINE 1%-EPI 1:100,000 20 ML VIAL SQ ONE (16:11)
--- NOTE | 2024-09-27 16:25 | P.ANPRN ---
Procedure Note - Anesthesia - Nerve Block Performed Bilateral Erector Spinae Single Time Out Performed: Yes (1244) Date of Procedure: 09/27/24 Procedure Start Time: 12:45 Procedure Stop Time: 12:52 Location of Patient: PreOp Indication: Acute Post-Operative Pain, Requested by Surgeon Sedation Type: Sedate with meaningful contact maintained Preparation: Sterile Prep, Sterile Dressing Position: Prone Catheter: None Needle Types: Pajunk Needle Gauge: 21 Ultrasound used to visualize needle placement: Yes Ultrasound used to observe medication spread: Yes Injectate: 0.5% Ropivacaine (see comment for volume) (20 mL of block solution on each side which containing 15 mL of 0.5% ropivacaine mixed with 5 mL of preservative-free normal saline.) Blood Aspirated: No Pain Paresthesia on Injection Noted: No Resistance on Injection: Normal Image Stored and Saved: Yes Events: Uneventful and Well Tolerated
[2024-09-27] MEDS: LACTATED RINGERS 1,000 ML IV ONE (17:17)
[2024-09-27 17:38] VITALS: RESP 16; TEMP 99.1
[2024-09-27] MEDS: HYDROmorphone 0.5 MG/0.5 ML SYRINGE IVP PRN (17:41)
[2024-09-27 18:33] VITALS: BP 141/83; PULSE 89
--- NOTE | 2024-10-03 17:50 | P.OP ---
Date of Procedure: 09/27/24 Description of Procedure: SURGEON: MAYA QUAN MD PREOPERATIVE DIAGNOSES: 1. Recurrent incarcerated ventral hernia 2. Obesity due to excess calories, BMI 34.3 3. Hyperlipidemia 4. Hypertensive heart disease 5. Bipolar disorder POSTOPERATIVE DIAGNOSES: 1. Recurrent incarcerated ventral hernia, 5 x 5 cm 2. Obesity due to excess calories, BMI 34.3 3. Hyperlipidemia 4. Hypertensive heart disease 5. Bipolar disorder 6. Intra-abdominal adhesions OPERATION: 1. Robotic-assisted da Javier Xi laparoscopic lysis of adhesions over 30 minutes 2. Robotic-assisted da Javier Xi laparoscopic repair of recurrent incarcerated umbilical hernia with mesh, ventralight ST mesh 11.4 cm Anesthesia: GETA, regional, local Estimated Blood Loss (ml): 5 Pathology: None COMPLICATIONS: None. Operative Findings: 1. Umbilical hernia defect current 5 x 5 cm with incarcerated omentum 2. Moderate epigastric, midline and bilateral abdominal wall adhesions lysed 3. Fascia repaired using #1 V-lock suture INDICATIONS: The patient is a 43-year-old male who presents with prior abdominal wall hernia less than a year ago. Patient gained over 25 pounds and noticed tear after working out 1 month ago. He reports painful swelling. Findings were consistent recurrent ventral hernia. Surgical intervention with laparoscopic versus robotic and open techniques were reviewed. Placement of mesh was also reviewed. Benefits and risks were thoroughly described. Informed consent was obtained. DESCRIPTION OF PROCEDURE: The patient was brought into the operating room and laid in supine position. After general induction, the abdomen had been prepped and draped in standard sterile fashion. Ioban draping was also placed. Prior to incision, a timeout protocol was confirmed with surgical team regarding the patient's name including procedures to be performed. The robot was primed prior to the procedure. A field block using local anesthetic was placed along hernia site including the proposed port sites. Initial incision was made with an #11 blade along the left upper quadrant. A 0 degree 5 mm laparoscopic trocar entry was performed and insufflated. Three 8 mm ports were placed along the left lateral abdominal wall under direct localization after exchanging the 5-mm for an 8 mm port. Placements of the ports were 15 cm from the target anatomy and 10 cm apart. An accessory 12 mm port was placed at the left upper quadrant for exchange of mesh including sutures. The da Javier Xi robot was previously primed, prepped and draped then docked from the right side of the patient onto the left side of the patient. I then sat at the robot Da Javier Xi console where working arms of the robot including Bovie cautery connected to robotic scissors, needle rolloff truck driver, and graspers placed by the inventory assistant. Moderate adhesions along the upper abdomen and bilateral abdominal wall was l ysed using vessel sealer including blunt dissection minutes. Incarcerated omental contents were found along the recurrent ventral hernia defect. The defects were reduced with preperitoneal fat found. Umbilical hernia defect 5 x 5 cm was found. The incarcerated contents were reduced as the peritoneal fat was cleaned from the abdominal wall. Next, hemostasis was checked with cautery. The hernia defects were oversewn using #1 nonabsorbable V-lock suture with fascial imbrication x 2. Next, ventralight ST mesh 11.4 cm was placed with the rough side towards the abdominal wall as to cover the umbilical defect. 2-0 VLOC 12 inch sutures were used to fixate the mesh. A final endoscopic imaging was obtained. All instruments and pneumoperitoneum were evacuated from the abdominal cavity. The da Javier Xi robot was undocked from the patient. I re-scrubbed into the case for closure of incisions. The fascia of the 12-mm port was probed and less than 8-mm in size. The incisions were reapproximated using 4-0 Monocryl in an interrupted subcuticular fashion. Liquid glue was applied to the skin after cleansing the skin with normal saline and dilute hydrogen peroxide. An abdominal binder was placed. At the end of the procedure, needle, sponge, and instrument count had been verified correct by surgical lead. The patient was taken to the postanesthesia care unit in stable condition. Plan - Discharge Summary Discharge Rx Participant: Yes New Discharge Prescriptions: New Simethicone [Gas-X] 125 mg PO AC-TID PRN #20 capsule PRN Reason: Pain Acetaminophen Tab [Tylenol Tab] 1,000 mg PO Q6HR PRN #30 tablet PRN Reason: Pain Cyclobenzaprine [Flexeril] 10 mg PO TID #30 tab Ibuprofen [Motrin] 600 mg PO Q8HR PRN #30 tab PRN Reason: Pain Continue Ezetimibe [Zetia] 10 mg PO HS lamoTRIgine [LaMICtal] 200 mg PO HS Simvastatin [Zocor] 40 mg PO HS Fenofibrate 160 mg PO HS valACYclovir HCL [Valacyclovir] 1,000 mg PO HS HYDROcodone/APAP 7.5-325MG [[place] 7.5-325] 1 tab PO Q6HR PRN PRN Reason: Pain Losartan [Cozaar] 50 mg PO HS Zolpidem [Ambien] 10 mg PO HS PRN PRN Reason: Insomnia traZODone HCL [Desyrel] 100 mg PO HS Discharge Medication List Ezetimibe [Zetia] 10 mg PO HS 02/08/15 [History] Fenofibrate 160 mg PO HS 02/08/15 [History] Simvastatin [Zocor] 40 mg PO HS 02/08/15 [History] lamoTRIgine [LaMICtal] 200 mg PO HS 02/08/15 [History] HYDROcodone/APAP 7.5-325MG [[place] 7.5-325] 1 tab PO Q6HR PRN 11/27/23 [History] Losartan [Cozaar] 50 mg PO HS 11/27/23 [History] Zolpidem [Ambien] 10 mg PO HS PRN 11/27/23 [History] traZODone HCL [Desyrel] 100 mg PO HS 11/27/23 [History] valACYclovir HCL [Valacyclovir] 1,000 mg PO HS 11/27/23 [History] Acetaminophen Tab [Tylenol Tab] 1,000 mg PO Q6HR PRN #30 tablet 09/27/24 [Rx] Cyclobenzaprine [Flexeril] 10 mg PO TID #30 tab 09/27/24 [Rx] Ibuprofen [Motrin] 600 mg PO Q8HR PRN #30 tab 09/27/24 [Rx] Simethicone [Gas-X] 125 mg PO AC-TID PRN #20 capsule 09/27/24 [Rx] Follow up Appointment(s)/Referral(s): Maya Quan MD [STAFF PHYSICIAN] - 10/01/24 2:15 pm Patient Instructions/Handouts: *Surgery [facility] - (Anesthesia) Discharge Instructions Outpatient Surgery, Laparoscopic Herniorrhaphy (IP), Ventral Hernia Repair (GEN) Activity/Diet/Wound Care/Special Instructions: No lifting for 4 pounds in 4 weeks, 10/27/24 NO LONG DRIVES OR AIRPLANE RIDES OVER 30 MINUTES FOR THE NEXT 2 WEEKS, 10/11/24, DUE TO HIGH RISK OF PULMONARY EMBOLISM/DVTs Using antibacterial soap. May shower. No bathtub soaks for 2 weeks, 10/11/24 Wear abdominal binder daily for comfort except for showering. Use ice along incisions for today to prevent swelling. Use Tylenol, simethicone and ibuprofen or Aleve scheduled for the next 24-48 hours for best pain relief. Discharge Disposition: HOME SELF-CARE
== END 2024-09-27 18:48 | disposition home or self-care (01) ==
LOC: OR 11:13
PROVIDERS: ATTEND Surgery Plastic and Reconstructive Surgery
DX: K43.0 Incisional hernia with obstruction, without gangrene (principal); G89.18 Other acute postprocedural pain; I11.9 Hypertensive heart disease without heart failure; E78.5 Hyperlipidemia, unspecified; F31.9 Bipolar disorder, unspecified; K66.0 Peritoneal adhesions (postprocedural) (postinfection); E66.09 Other obesity due to excess calories; Z68.34 Body mass index [BMI] 34.0-34.9, adult; Z79.624 Long term (current) use of inhibitors of nucleotide synthesis; Z79.899 Other long term (current) drug therapy; Z98.890 Other specified postprocedural states; Z96.653 Presence of artificial knee joint, bilateral
CPT/HCPCS: 49616; S2900; 64999; 80053; 85025